=== PATIENT | female | born 1960 | race Caucasian/White ===

== ENCOUNTER 2022-04-07 10:22 | Outpatient (CLI) | payer OTHER, SELFPAY ==
[2022-04-07 12:00] LABS: Chloride* 107 mmol/L (96-114); Sodium* 142 mmol/L (135-149)
[2022-04-07 12:01] LABS: Potassium* 4.4 mmol/L (3.6-5.1)
[2022-04-07 12:03] LABS: Cholesterol* 298 mg/dL (90-199); Creatinine* 0.6 mg/dL (0.5-1.5); Estimated Glomerular Filt Rate 102 ml/min
[2022-04-07 12:04] LABS: Carbon Dioxide* 27 mmol/L (20-32)
[2022-04-07 12:05] LABS: Blood Urea Nitrogen* 12 mg/dL (7-30); Calcium* 9.2 mg/dL (8.4-10.6); Glucose* 110 mg/dL (60-115); HDL Cholesterol* 53 mg/dL (>=50); LDL Cholesterol Calculated 224 mg/dL (<100); Triglycerides* 104 mg/dL (40-149)
[2022-04-07 12:35] LABS: Vitamin D 25 Hydroxy* 47 ng/mL (30-80)
== END 2022-04-07 10:23 | disposition home or self-care (01) ==
PROVIDERS: PCP Family Medicine; Visit Provider Family Medicine
DX: E78.5 Hyperlipidemia, unspecified (principal); R53.83 Other fatigue; Z86.39 Personal history of other endocrine, nutritional and metabolic disease; I10 Essential (primary) hypertension
CPT/HCPCS: 80048; 80061; 82306; 84443

== ENCOUNTER 2022-08-18 09:07 | Outpatient (CLI) | payer OTHER, SELFPAY ==
[2022-08-18 11:37] LABS: Cholesterol* 166 mg/dL (90-199)
[2022-08-18 11:38] LABS: Alanine Aminotransferase* 337 U/L (4-35); HDL Cholesterol* 56 mg/dL (>=50); LDL Cholesterol Calculated 96 mg/dL (<100); Triglycerides* 69 mg/dL (40-149)
[2022-08-18 13:40] LABS: Alkaline Phosphatase* 125 U/L (40-150); Aspartate Amino Transferase* 220 U/L (12-35); Bilirubin Direct* 0.2 mg/dL (0.0-0.5); Bilirubin Total* 0.7 mg/dL (0.1-1.5); Total Protein* 7.5 g/dL (6.0-8.3)
[2022-08-18 13:41] LABS: Creatine Kinase* 59 U/L (41-117)
== END 2022-08-18 09:08 | disposition home or self-care (01) ==
PROVIDERS: PCP Family Medicine; Visit Provider Family Medicine
DX: E78.5 Hyperlipidemia, unspecified (principal); R74.8 Abnormal levels of other serum enzymes; E55.9 Vitamin D deficiency, unspecified; I10 Essential (primary) hypertension; R53.83 Other fatigue
CPT/HCPCS: 80061; 80076; 82550; 84460

== ENCOUNTER 2022-09-29 14:01 | Outpatient (CLI) | payer OTHER, SELFPAY | END 2022-09-29 14:02 | disposition home or self-care (01) | LOC: NFLDREF 10-01 10:30 | PROVIDERS: PCP Family Medicine; Referring Provider Family Medicine; Visit Provider Family Medicine | DX: R74.8 Abnormal levels of other serum enzymes (principal) | CPT/HCPCS: 80076 ==

== ENCOUNTER 2022-10-04 09:48 | Outpatient (CLI) | payer OTHER, SELFPAY | END 2022-10-04 09:49 | disposition home or self-care (01) | PROVIDERS: PCP Family Medicine; Visit Provider Family Medicine | DX: R74.8 Abnormal levels of other serum enzymes (principal); I10 Essential (primary) hypertension; E78.5 Hyperlipidemia, unspecified; E55.9 Vitamin D deficiency, unspecified; R53.83 Other fatigue | CPT/HCPCS: 80074; 82103; 82390; 82728; 85610; 86039 ==

== ENCOUNTER 2022-10-06 07:52 | Outpatient (CLI) | payer OTHER, SELFPAY ==
--- NOTE | 2022-10-06 08:15 | CRLHL7_ITS ---
For Patients: As a result of the Century Cures Act, medical imaging exams and procedure reports are released immediately into your electronic medical record. You may view this report before your referring provider. If you have questions, please contact your health care provider. INDICATION: Elevated liver function tests COMPARISON: none TECHNIQUE: Real time bhandari scale imaging and color Doppler analysis was performed of the right upper quadrant. FINDINGS: The patient`s liver is of normal size and has mildly coarsened echogenicity. There is a normal appearance of the hepatic IVC and proximal abdominal aorta. There is no evidence of ascites. The gallbladder is absent. The common bile duct measures mm in diameter at the level of the carlos hepatis. The pancreas appears normal. There is no evidence of a stone or hydronephrosis within the right kidney. The right kidney measures 11.0 cm in length. IMPRESSION: Status post cholecystectomy. The common bile duct measures 1.1 cm which likely represents expected reservoir effect post gallbladder resection. However, if there are elevated levels of bilirubin or alkaline phosphatase, consider MRCP for further evaluation to exclude common bile duct stone. Mild hepatic steatosis. Dictated by Sacha Moreira MD @ 10/06/2022 12:08:50 PM (Electronically Signed)
== END 2022-10-06 07:53 | disposition home or self-care (01) ==
PROVIDERS: PCP Family Medicine; Visit Provider Family Medicine
DX: R74.8 Abnormal levels of other serum enzymes (principal); K76.0 Fatty (change of) liver, not elsewhere classified
CPT/HCPCS: 76705

== ENCOUNTER 2022-10-18 10:51 | Outpatient (CLI) | payer OTHER, SELFPAY ==
--- NOTE | 2022-10-18 11:15 | CRLHL7_ITS ---
For Patients: As a result of the Century Cures Act, medical imaging exams and procedure reports are released immediately into your electronic medical record. You may view this report before your referring provider. If you have questions, please contact your health care provider. Indication: Elevated LFTs, ferritin. Technique: Multisequence multiplanar MRI of the abdomen both with and without IV contrast (15 mL Dotarem). Comparison: Right upper quadrant abdominal ultrasound dated 10/06/2022. Findings: Liver: There is slight signal dropout on out of phase imaging, compatible with mild diffuse hepatic steatosis. No signal abnormality to suggest iron overload. No suspicious focal hepatic lesion. Bile ducts: There is intrahepatic and extrahepatic biliary duct dilation, with the common bile duct measuring up to 1.1 cm. No definite choledocholithiasis is identified, and the biliary duct dilation is likely secondary to post cholecystectomy state. Gallbladder: Postcholecystectomy. Pancreas: Few scattered subcentimeter cystic lesions at the pancreatic uncinate process, body, and tail, some of which appear to communicate with the main pancreatic duct and may reflect small side branch IPMNs. Spleen: Unremarkable. Adrenals: Unremarkable. Kidneys: Kidneys enhance symmetrically, without hydronephrosis. Retroperitoneum: No lymphadenopathy. Visualized Bowel and mesentery: Visualized bowel is nondilated, no evidence of bowel obstruction. No significant ascites. Vessels: Unremarkable. Abdominal wall: No acute abdominal wall abnormality. Bones: No suspicious/aggressive focal enhancing osseous lesion identified. Impression: 1. Mild diffuse hepatic steatosis. No signal abnormality to suggest iron overload. 2. 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 Recommend follow-up MRI abdomen in 1 year. 3. Mild intrahepatic and extrahepatic biliary duct dilation, without choledocholithiasis identified. This is likely secondary to reservoir effect postcholecystectomy. Dictated by Dharmesh Hadley MD @ 10/18/2022 1:52:04 PM (Electronically Signed)
== END 2022-10-18 10:52 | disposition home or self-care (01) ==
LOC: MRI 10:52
PROVIDERS: PCP Family Medicine; Visit Provider Internal Medicine Hematology & Oncology
DX: R74.8 Abnormal levels of other serum enzymes (principal); K76.0 Fatty (change of) liver, not elsewhere classified; K86.2 Cyst of pancreas
CPT/HCPCS: 74183; A9575

== ENCOUNTER 2022-11-02 12:54 | Outpatient (CLI) | payer OTHER, SELFPAY ==
--- NOTE | 2022-11-02 13:15 | CRLHL7_ITS ---
For Patients: As a result of the Century Cures Act, medical imaging exams and procedure reports are released immediately into your electronic medical record. You may view this report before your referring provider. If you have questions, please contact your health care provider. INDICATION: Abnormal finding in liver TECHNIQUE: Following IV injection of FDG with uptake of 60 minutes, noncontrast CT scan followed by a PET scan were acquired along the length of body from the head to the upper thighs. Noncontrast CT was used for anatomic localization and photon attenuation correction of the PET-CT scan. - Blood glucose level: 78. - FDG dose (mCi): 11.3. COMPARISON: MRI 10/18/2022. FINDINGS: Head/Neck: Focus of uptake in the right posterior suboccipital soft tissues without definite CT correlate, possibly lymph node, SUV max 5.8. Asymmetric tracer uptake in a heterogeneously hypoattenuating right thyroid nodule with SUV max 17.8. The left thyroid demonstrates a partially calcified nodule, and SUV max 3.5. - Chest: Tracer uptake in the subcarinal region, SUV max 8.4, and in the right hilar region, SUV max 6.9. Tracer uptake at the atrial septum is likely benign lipomatous hypertrophy. - Background liver parenchyma with SUV mean of 3.6. No suspicious tracer uptake. - Musculoskeletal: Focal uptake at the left greater trochanter likely reflects muscular injury at the gluteus insertion. Milder uptake is also noted at the right greater trochanter. No suspicious osseous uptake. - CT findings: Atherosclerotic calcifications of the aorta and its branches. Cholecystectomy) Mild degenerative changes in the spine. IMPRESSION : 1. Asymmetric uptake in the right thyroid gland is indeterminate. Recommend thyroid ultrasound for further evaluation. 2. Foci of uptake in the subcarinal and right hilar regions without definite correlating abnormality on CT scan. These are indeterminate. Focal uptake at the interatrial septum is likely benign lipomatous hypertrophy. These other foci in the mediastinum may reflect similar etiology. 3. No abnormal tracer uptake in the abdomen or pelvis. Dictated by Onesimo Galan MD @ 11/06/2022 10:23:42 AM (Electronically Signed)
== END 2022-11-02 12:55 | disposition home or self-care (01) ==
PROVIDERS: PCP Family Medicine; Visit Provider Internal Medicine Hematology & Oncology
DX: E04.1 Nontoxic single thyroid nodule (principal); R93.2 Abnormal findings on diagnostic imaging of liver and biliary tract
CPT/HCPCS: 78815; A9552

== ENCOUNTER 2022-11-07 07:56 | Outpatient (RCR) | payer OTHER, SELFPAY ==
[2022-10-17 10:54] LABS: Albumin* 3.7 g/dL (3.3-5.0)
[2022-10-17 10:57] LABS: Alkaline Phosphatase* 172 U/L (40-150); Bilirubin Total* 2.1 mg/dL (0.1-1.5); Total Protein* 7.9 g/dL (6.0-8.3)
[2022-10-17 11:21] LABS: Aspartate Amino Transferase* 1079 U/L (12-35)
[2022-10-17 11:33] LABS: Alanine Aminotransferase* 1203 U/L (4-35)
[2022-10-17 20:42] LABS: Iron* 263 ug/dL (37-170)
[2022-10-17 20:51] LABS: Percent Iron Saturation 93 % (20-50); Total Iron Binding Capacity 284 ug/dL (265-497)
[2022-10-18 20:33] LABS: Alpha Fetoprotein Tumor Marker 32 ng/mL (0-9)
[2022-10-23 17:33] LABS: C282Y Hemochromatosis Mutation Negative; H63D Hemochromatosis Mutation Negative; HFE PCR Specimen Whole Blood; S65C Hemochromatosis Mutation Negative
[2022-11-07 09:06] LABS: Albumin* 3.5 g/dL (3.3-5.0)
[2022-11-07 09:08] LABS: Iron* 247 ug/dL (37-170)
[2022-11-07 09:09] LABS: Alkaline Phosphatase* 200 U/L (40-150); Bilirubin Total* 5.9 mg/dL (0.1-1.5)
[2022-11-07 09:18] LABS: Percent Iron Saturation 89 % (20-50); Total Iron Binding Capacity 278 ug/dL (265-497)
[2022-11-07 09:21] LABS: Aspartate Amino Transferase* 1188 U/L (12-35)
[2022-11-07 09:40] LABS: Alanine Aminotransferase* 984 U/L (4-35)
--- NOTE | 2022-12-08 12:12 | ONC.NURNOTE ---
Second message left for patient to call and schedule follow up from [place]-Dr. smith wanted to see her before discharging from clinic.
--- NOTE | 2022-12-21 15:37 | PC.NURSE ---
Pt called today in response to a message from [facility] to get scheduled for a follow-up visit with Dr. Grider. Pt shares that she received a non-oncology diagnosis and is getting care at [facility] at this time. Pt voices her appreciation for Dr. Grider and the care she received at [facility] but at this time, doesn't feel it necessary to have a follow-up/wrap up visit with MD. Support and understanding offered. Pt did ask if she needed her screening mammogram which is scheduled for tomorrow since she just had a PET scan. RN instructed pt to get her mammogram as scheduled as it views the breast tissue differently than a PET scan. Pt verbalized understanding.
== END 2023-04-15 23:59 | disposition home or self-care (01) ==
LOC: CCIC 07:56
PROVIDERS: PCP Family Medicine; Referring Provider Family Medicine; Visit Provider Internal Medicine Hematology & Oncology
DX: E83.110 Hereditary hemochromatosis (principal); R79.89 Other specified abnormal findings of blood chemistry
CPT/HCPCS: 36415; 80076; 81256; 82105; 82728; 83540; 83550; 99202; 99205

== ENCOUNTER 2022-11-13 07:47 | Outpatient (CLI) | payer OTHER, SELFPAY ==
--- NOTE | 2022-11-13 | CRLHL7_ITS ---
For Patients: As a result of the Cures Act, medical imaging exams and procedure reports are released immediately into your electronic medical record. You may view this report before your referring provider. If you have questions, please contact your health care provider. CLINICAL HISTORY: Uptake on PET Comparison PET-CT 11/02/2022 TECHNIQUE: Leon-scale and color Doppler images were acquired of the thyroid gland. FINDINGS: The right thyroid lobe measures 4.8 x 1.6 x 1.8 centimeters left thyroid lobe measures 6.3 x 1.3 x 2.2 centimeters. Numerous nodules present bilaterally. Larger nodules include the following : Right thyroid lobe: Right superior isoechoic 1.3 x 0.6 x 1.1 centimeter nodule TR3. Right superior hypoechoic 1.2 x 0.6 x 0.7 centimeter nodule TR4. Right lateral mid 0.7 by 0.4 x 0.9 cm isoechoic nodule TR 3. Two adjacent hypoechoic nodules in the right inferior thyroid lobe 1 measures 1.6 x 0.8 x 1.2 centimeters adjacent inferior nodule measuring 1.3 x 0.8 x 1 centimeters TR4. Left thyroid lobe Left superior 1.6 x 0.7 x 1.2 centimeter hypoechoic nodule tear 4 Left mid hypoechoic nodule measuring 1.2 x 1.3 x 0.7 centimeters TR 4 Left mid nodule hypoechoic measuring 1 x 0.6 x 0.6 centimeters TR4 Hypoechoic peripherally calcified left inferior nodule measuring 0.7 x 0.6 x 0.7 centimeters TR4 Hypoechoic left inferior nodule measuring 2.5 x 1.1 x 2.3 centimeters TR 4. IMPRESSION: Multinodular thyroid ACR [email or web address] TR1: Benign No FNA TR2: Not Suspicious No FNA TR3: Mildly Suspicious FNA if greater than or equal to 2.5 cm Follow if greater than or equal to 1.5 cm TR4: Moderately Suspicious FNA if greater than or equal to 1.5 cm Follow if greater than or equal to 1 cm TR5: Highly Suspicious FNA if greater than or equal to 1 cm Follow if greater than or equal to 0.5 cm Dictated by Amanda Gutierrez MD @ 11/13/2022 9:59:53 AM (Electronically Signed)
== END 2022-11-13 07:48 | disposition home or self-care (01) ==
LOC: US 07:48
PROVIDERS: PCP Family Medicine; Visit Provider Internal Medicine Hematology & Oncology
DX: E04.1 Nontoxic single thyroid nodule (principal)
CPT/HCPCS: 76536

== ENCOUNTER 2022-11-17 13:56 | Outpatient (CLI) | payer OTHER, SELFPAY | END 2022-11-17 13:57 | disposition home or self-care (01) | PROVIDERS: PCP Family Medicine; Visit Provider Family Medicine | DX: I10 Essential (primary) hypertension (principal); R79.89 Other specified abnormal findings of blood chemistry; E04.1 Nontoxic single thyroid nodule; E55.9 Vitamin D deficiency, unspecified; R74.8 Abnormal levels of other serum enzymes; E78.5 Hyperlipidemia, unspecified | CPT/HCPCS: 80048 ==

== ENCOUNTER 2022-11-20 08:52 | Outpatient (CLI) | payer OTHER, SELFPAY ==
--- NOTE | 2022-11-20 09:15 | CRLHL7_ITS ---
For Patients: As a result of the Century Cures Act, medical imaging exams and procedure reports are released immediately into your electronic medical record. You may view this report before your referring provider. If you have questions, please contact your health care provider. INDICATION : Bilateral thyroid nodules TECHNIQUE : Ultrasound-guided fine needle aspiration of bilateral thyroid nodules Comparison : 11/13/2022 ultrasound FINDINGS : PROCEDURE: After the informed consent and time-out, multiple fine needle aspirations were obtained from a left thyroid lobe nodule and a right thyroid lobe nodule. Fine needle performed. 25 gauge needles were used. Lidocaine was used for local anesthesia. The preliminary cytology was adequate for interpretation. Real-time imaging was used for guidance and needle placement. Post imaging ultrasound demonstrates no immediate complication. IMPRESSION : Successful fine needle aspiration of right thyroid lobe nodule and left thyroid lobe nodule. Dictated by Sacha Moreira MD @ 11/20/2022 10:34:58 AM (Electronically Signed)
== END 2022-11-20 08:53 | disposition home or self-care (01) ==
PROVIDERS: PCP Family Medicine; Visit Provider Internal Medicine Hematology & Oncology
DX: E04.1 Nontoxic single thyroid nodule (principal); R79.89 Other specified abnormal findings of blood chemistry
CPT/HCPCS: 10005; 10006; 88173

== ENCOUNTER 2023-01-08 09:09 | Outpatient (CLI) | payer OTHER, SELFPAY | END 2023-01-08 09:10 | disposition home or self-care (01) | LOC: FBOREF 09:09 | PROVIDERS: PCP Family Medicine; Visit Provider Family Medicine | DX: I10 Essential (primary) hypertension (principal); E04.1 Nontoxic single thyroid nodule; E55.9 Vitamin D deficiency, unspecified | CPT/HCPCS: 80048 ==

== ENCOUNTER 2023-11-14 09:38 | Outpatient (CLI) | payer BC, SELFPAY | END 2023-11-14 09:39 | disposition home or self-care (01) | PROVIDERS: PCP Family Medicine; Visit Provider Family Medicine | DX: I10 Essential (primary) hypertension (principal); E78.2 Mixed hyperlipidemia; E04.1 Nontoxic single thyroid nodule | CPT/HCPCS: 80048; 84443; 85025 ==

== ENCOUNTER 2025-06-03 08:14 | Outpatient (CLI) | payer BC, SELFPAY | END 2025-06-03 08:15 | disposition home or self-care (01) | PROVIDERS: PCP Family Medicine; Visit Provider Family Medicine | DX: K75.4 Autoimmune hepatitis (principal); E78.2 Mixed hyperlipidemia; I10 Essential (primary) hypertension | CPT/HCPCS: 80048; 80061; 80076; 82787; 85025 ==